=== PATIENT | female | born 1980 | race Caucasian/White ===

== ENCOUNTER 2019-08-10 07:26 | Day surgery (SDC) | payer BC ==
[~2019-08-10 07:26] MED LIST: Lactated Ringers 1,000 ML IV SCH; Midazolam 1 MG/ML 2 ML SDV ONE; Propofol 200 MG/20 ML SDV ONE; Rocuronium 100 MG/10 ML Syringe ONE; fentaNYL 250 MCG/5 ML SDV ONE
[2019-08-10] MEDS ORDERED: Ondansetron 4 MG/2 ML SDV ONE (07:27)
[2019-08-10] MEDS ORDERED: Dexamethasone 4 MG/ML 5 ML MDV ONE (07:27)
[2019-08-10] MEDS ORDERED: Lidocaine 2% 5 ML SDV ONE (07:27)
[2019-08-10] MEDS ORDERED: Propofol 200 MG/20 ML SDV ONE ×2 (07:35→11:22)
[2019-08-10] MEDS ORDERED: Bupivacaine 0.25% 10 ML SDV ONE (07:37)
[2019-08-10] MEDS ORDERED: Scopolamine 1.5 MG Transdermal Patch TRDERM PRN (08:34)
--- NOTE | 2019-08-10 08:34 | PCM.PREANE ---
Preanesthetic Assessment - Anesthesia/Transfusion/Family Hx Anesthesia History: No Prior Anesthesia Family History of Anesthesia Reaction: No Transfusion History: No Prior Transfusion(s) Intubation History: Unknown - Review of Systems General: No Symptoms Pulmonary: No Symptoms Cardiovascular: No Symptoms Gastrointestinal: No Symptoms Neurological: No Symptoms Other: Reports: None - Physical Assessment NPO Status Date: 08/09/19 NPO Status Time: 20:30 Vital Signs: Last Vital Signs Temp 36.4 C 08/10/19 07:55 Pulse 85 08/10/19 07:55 Resp 15 08/10/19 07:55 BP 130/70 08/10/19 07:55 Pulse Ox 100 08/10/19 07:55 Height: 5 ft 6 in Weight: 94.801 kg ASA Class: 2 Mental Status: Alert & Oriented x3 Airway Class: Mallampati = 2 Dentition: Reports: Normal Dentition Thyro-Mental Finger Breadths: 3 Mouth Opening Finger Breadths: 3 (narrow mouth) ROM/Head Extension: Full Lungs: Clear to Auscultation, Normal Respiratory Effort Cardiovascular: Regular Rate, Regular Rhythm - Lab Values: Laboratory Last Values WBC 6.61 K/uL (4.0-11.0) 08/10/19 08:01 RBC 5.00 M/uL (4.30-5.90) 08/10/19 08:01 Hgb 13.8 g/dL (12.0-16.0) 08/10/19 08:01 Hct 42.4 % (36.0-46.0) 08/10/19 08:01 MCV 84.8 fL (80.0-98.0) 08/10/19 08:01 MCH 27.6 pg (27.0-32.0) 08/10/19 08:01 MCHC 32.5 g/dL (31.0-37.0) 08/10/19 08:01 RDW Std Deviation 41.7 fl (28.0-62.0) 08/10/19 08:01 RDW Coeff of Marycarmen 14 % (11.0-15.0) 08/10/19 08:01 Plt Count 274 K/uL (150-400) 08/10/19 08:01 MPV 10.20 fL (7.40-12.00) 08/10/19 08:01 Nucleated RBC % 0.0 /100WBC 08/10/19 08:01 Nucleated RBCs # 0 K/uL 08/10/19 08:01 - Allergies Allergies/Adverse Reactions: Allergies Allergy/AdvReac Type Severity Reaction Status Date / Time No Known Allergies Allergy Verified 08/07/19 08:50 - Blood Blood Available: No - Anesthesia Plan Pre-Op Medication Ordered: None - Acknowledgements Anesthesia Type Planned: General Anesthesia Pt an Appropriate Candidate for the Planned Anesthesia: Yes Alternatives and Risks of Anesthesia Discussed w Pt/Guardian: Yes Pt/Guardian Understands and Agrees with Anesthesia Plan: Yes PreAnesthesia Questionnaire HEENT History: Reports: None Cardiovascular History: Reports: None Respiratory History: Reports: None Gastrointestinal History: Reports: GERD Genitourinary History: Reports: None OUTGOING INSPECTOR History: Reports: , Other (See Below) (left hydrosalpinx) Musculoskeletal History: Reports: Back Pain, Chronic Neurological History: Reports: Migraines Psychiatric History: Reports: None Endocrine/Metabolic History: Reports: Obesity/BMI 30+ (BMI 33.7) Hematologic History: Reports: None Immunologic History: Reports: None Oncologic (Cancer) History: Reports: None Dermatologic History: Reports: None - Past Surgical History Head Surgeries/Procedures: Reports: None HEENT Surgical History: Reports: Oral Surgery Other HEENT Surgeries/Procedures: wisdom teeth extraction Cardiovascular Surgical History: Reports: None Respiratory Surgical History: Reports: None GI Surgical History: Reports: None Female Surgical History: Reports: None Endocrine Surgical History: Reports: None Neurological Surgical History: Reports: None Musculoskeletal Surgical History: Reports: None Oncologic Surgical History: Reports: None Dermatological Surgical History: Reports: None - SUBSTANCE USE Smoking Status *Q: Former Smoker Tobacco Use Within Last Twelve Months: Cigarettes - HOME MEDS Home Medications: Home Meds Acetaminophen [Tylenol Extra Strength] 2 tab PO ASDIRECTED PRN 08/07/19 [History ] Aspirin/Acetaminophen/Caffeine [Migraine Formula Caplet] 2 tab PO Q6H PRN [History] Calcium Carb/Magnesium Hydrox [Rolaids Chewable Tablet] 1 tab.chew CHEW ASDIRECTED PRN 08/07/19 [History] Cholecalciferol (Vitamin D3) [Vitamin D3] 5,000 units PO DAILY 08/07/19 [History ] - CURRENT (IN HOUSE) MEDS Current Meds: Current Medications Lactated Ringer's (Ringers, Lactated) 1,000 mls @ 125 mls/hr IV ASDIRECTED ÁNGEL Discontinued Medications Bupivacaine HCl (Sensorcaine-Mpf 0.25%) Confirm Administered Dose 20 ml .ROUTE .STK-MED ONE Stop: 08/10/19 07:38 Dexamethasone (Dexamethasone) Confirm Administered Dose 20 mg .ROUTE .STK-MED ONE Stop: 08/10/19 07:28 Fentanyl (Sublimaze) Confirm Administered Dose 250 mcg .ROUTE .STK-MED ONE Stop: 08/10/19 07:26 Lidocaine (Xylocaine-Mpf 2%) Confirm Administered Dose 5 ml .ROUTE .STK-MED ONE Stop: 08/10/19 07:28 Midazolam HCl (Versed 1 Mg/Ml) Confirm Administered Dose 2 mg .ROUTE .STK-MED ONE Stop: 08/10/19 07:27 Ondansetron HCl (Zofran) Confirm Administered Dose 4 mg .ROUTE .STK-MED ONE Stop: 08/10/19 07:28 Propofol (Diprivan 20 Ml) Confirm Administered Dose 200 mg .ROUTE .STK-MED ONE Stop: 08/10/19 07:27 Propofol (Diprivan 20 Ml) Confirm Administered Dose 200 mg .ROUTE .STK-MED ONE Stop: 08/10/19 07:36 Rocuronium [place] (Zemuron) Confirm Administered Dose 100 mg .ROUTE .STK-MED ONE Stop: 08/10/19 07:27
[2019-08-10] MEDS ORDERED: Methylene Blue 50 MG/10 ML Ampule ONE (10:41)
[2019-08-10] MEDS ORDERED: HYDROmorphone 2 MG/ML Syringe ONE (11:17)
[2019-08-10] MEDS ORDERED: Glycopyrrolate 0.2 MG/ML SDV ONE (11:27)
[2019-08-10] MEDS ORDERED: Neostigmine Methylsulfate 1 MG/ML 5 ML Syringe ONE (11:27)
[2019-08-10] MEDS ORDERED: Ketorolac 30 MG/ML SDV ONE (11:39)
--- NOTE | 2019-08-10 12:01 | PCM.OPNOTE ---
- General Post-Op/Procedure Note Date of Surgery/Procedure: 08/10/19 Operative Procedure(s): Diagnostic laparoscopy, left salpingectomy Findings: Normal appearing liver. Normal appearing uterus and ovaries. Dilated left fallopian tube. Normal right fallopian tube. Normal appearing cervix, sounded to 9cm. Pre Op Diagnosis: 39yo who desires . Left hydrosalpinx Post-Op Diagnosis: 39yo who desires . Left hydrosalpinx Anesthesia Technique: General ET Tube Primary Surgeon: Shruti Springer Pathology: Left fallopian tube Fluid Replacement, Intraop: 1,000 Output, Urine Amount: 5 Complications: None Condition: Good
[2019-08-10] MEDS ORDERED: fentaNYL 100 MCG/2 ML SDV IVPUSH PRN (12:04)
--- NOTE | 2019-08-10 12:39 | PCM.POSTAN ---
POST ANESTHESIA ASSESSMENT - MENTAL STATUS Mental Status: Alert - VITAL SIGNS Vital Signs: Last Vital Signs Temp 36.4 C 08/10/19 07:55 Pulse 87 08/10/19 12:28 Resp 12 08/10/19 12:28 BP 117/72 08/10/19 12:28 Pulse Ox 94 L 08/10/19 12:28 - RESPIRATORY Respiratory Status: Respiratory Rate WNL - CARDIOVASCULAR CV Status: Pulse Rate WNL - GASTROINTESTINAL GI Status: No Symptoms - POST OP HYDRATION Hydration Status: Adequate & Stable
--- NOTE | 2019-08-10 13:36 | PCM48HPAN ---
Post Anesthesia Note - EVALUATION WITHIN 48HRS OF ANESTHETIC Vital Signs in Normal Range: Yes Patient Participated in Evaluation: Yes Respiratory Function Stable: Yes Airway Patent: Yes Cardiovascular Function Stable: Yes Hydration Status Stable: Yes Pain Control Satisfactory: Yes Nausea and Vomiting Control Satisfactory: Yes Mental Status Recovered: Yes Vital Signs: Last Vital Signs Temp 36.3 C 08/10/19 12:35 Pulse 97 08/10/19 12:35 Resp 15 08/10/19 12:35 BP 130/76 08/10/19 12:35 Pulse Ox 95 08/10/19 12:35 - COMMENTS/OBSERVATIONS Free Text/Narrative:: No anesthesia problems
[2019-08-10 13:45] VITALS: BP 107/67; PULSE 89
[2019-08-10] MEDS ORDERED: diphenhydrAMINE 50 MG/ML SDV ONE (13:57)
[2019-08-10] MEDS ORDERED: diphenhydrAMINE 50 MG/ML SDV IVPUSH PRN (14:55)
--- NOTE | 2019-08-10 15:49 | OR ---
SURGEON: Shruti Springer MD DATE OF PROCEDURE: 08/10/2019 PREOPERATIVE DIAGNOSES: 1. A 39-year-old, G2, P2, who desires . 2. Left hydrosalpinx diagnosed on hysterosalpingogram. POSTOPERATIVE DIAGNOSES: 1. A 39-year-old, G2, P2, who desires . 2. Left hydrosalpinx diagnosed on hysterosalpingogram. PROCEDURE: Diagnostic laparoscopy and left salpingectomy. PRIMARY SURGEON: Shruti Springer MD. ANESTHESIA: General endotracheal. ESTIMATED BLOOD LOSS: 5 mL. SPECIMENS: Left tube. IV FLUIDS: 1000 mL LR. COMPLICATIONS: None. CONDITION: Stable to recovery room. FINDINGS: 1. Normal-appearing cervix, sounded to 9 cm. 2. Normal-appearing liver. 3. Normal-appearing uterus and ovaries. Dilated left fallopian tube. Normal- appearing right fallopian tube. DESCRIPTION OF PROCEDURE: The patient was taken to the operating room where general anesthesia was obtained without difficulty. She was placed in the dorsal lithotomy position with legs in Yellofin stirrups. She was prepared and draped in normal sterile fashion. A time-out procedure was performed. A Graves speculum was inserted into the vagina and the cervix was grasped with a single-tooth tenaculum. The cervix was dilated with Hegar dilators to a size 6. The uterus then sounded to 9 cm. A HUMI uterine manipulator was inserted through the cervix into the uterus. The intrauterine balloon was insufflated with 5 mL of air. Attention was then turned to the abdomen. The umbilicus was infiltrated with 0.25% Marcaine and a 5 mm incision was made with a scalpel. A 5 mm trocar was inserted into the abdomen under direct visualization. Pneumoperitoneum was then created with CO2 gas. Two other ports were placed in the bilateral lower quadrants under direct visualization after infiltration with 0.25% Marcaine. Inspection of the pelvis revealed the above findings. The patient's left fallopian tube was grasped with an atraumatic grasper and the LigaSure device was used to clamp, coagulate, and transect the left fallopian tube along the mesosalpinx until the cornu was reached. The tube was then transected at the cornu using the LigaSure device. The 5 mm right lower quadrant port was then removed and replaced with a 12 mm port. An Endo Catch bag was then placed into the abdomen and the left tube was placed in Endo Catch bag and removed through the 12 mm port. The pelvis inspected and good hemostasis was noted. The patient was taken out of Trendelenburg. A Neftali-Jose device was used to close the 12 mm fascial port with 0 Vicryl suture. All instruments were then removed from the patient's abdomen and the gas was removed. The skin incisions were closed with 4-0 Monocryl. The Graves speculum was replaced into the vagina. The HUMI uterine manipulator was removed and hemostasis was noted. The patient was awakened and taken to recovery room in stable condition. All sponge, lap, and instrument counts were correct x2. The patient tolerated the procedure well. [id number] / MODL /[id number]
== END 2019-08-10 14:33 | disposition home or self-care (01) ==
LOC: MW.SDS 07:26
PROVIDERS: ATTEND Obstetrics & Gynecology
DX: N70.11 Chronic salpingitis (principal); G43.909 Migraine, unspecified, not intractable, without status migrainosus; K21.9 Gastro-esophageal reflux disease without esophagitis; E66.9 Obesity, unspecified; Z68.33 Body mass index [BMI] 33.0-33.9, adult; Z87.891 Personal history of nicotine dependence; Z79.82 Long term (current) use of aspirin
CPT/HCPCS: 36415; 58661; 84703; 85027; A9270; J1100; J1170; J1200; J1885; J2001; J2250; J2405; J2704; J3010; J3490; J7120

== ENCOUNTER 2022-01-19 06:37 | Day surgery (SDC) | payer BC ==
[~2022-01-19 06:37] MED LIST changes: -Midazolam 1 MG/ML 2 ML SDV ONE; -Propofol 200 MG/20 ML SDV ONE; -Rocuronium 100 MG/10 ML Syringe ONE; -fentaNYL 250 MCG/5 ML SDV ONE
[2022-01-19] MEDS ORDERED: Scopolamine 1.5 MG Transdermal Patch TRDERM PRN (07:21)
[2022-01-19] MEDS ORDERED: Propofol 200 MG/20 ML SDV ONE ×5 (07:28→09:40)
[2022-01-19] MEDS ORDERED: Midazolam 1 MG/ML 2 ML SDV ONE (07:28)
[2022-01-19] MEDS ORDERED: fentaNYL 100 MCG/2 ML SDV ONE ×3 (07:28→08:48)
[2022-01-19] MEDS ORDERED: Rocuronium 100 MG/10 ML MDV ONE ×2 (07:29→09:29)
[2022-01-19] MEDS ORDERED: Methylene Blue 50 MG/10 ML Ampule ONE (07:29)
[2022-01-19] MEDS ORDERED: Dexmedetomidine 200 MCG/2 ML SDV ONE (07:30)
[2022-01-19] MEDS ORDERED: Bupivacaine 0.25% 30 ML SDV ONE (07:30)
[2022-01-19] MEDS ORDERED: Bupivacaine 0.25% 10 ML SDV ONE (07:30)
[2022-01-19] MEDS ORDERED: Lidocaine 2% 5 ML SDV ONE (07:35)
[2022-01-19 08:00] LABS: POTASSIUM,K 3.6 mmol/L (3.5-5.1)
[2022-01-19] MEDS ORDERED: Ondansetron 4 MG/2 ML SDV IVPUSH PRN (08:40)
[2022-01-19] MEDS ORDERED: Naloxone 0.4 MG/ML SDV IVPUSH PRN (08:40)
[2022-01-19] MEDS ORDERED: Metoclopramide 10 MG/2 ML SDV IVPUSH PRN (08:40)
[2022-01-19] MEDS ORDERED: HYDROmorphone 1 MG/ML Syringe IVPUSH PRN (08:40)
[2022-01-19] MEDS ORDERED: Albuterol 0.083% 2.5 MG/3 ML Neb Soln NEB PRN (08:40)
[2022-01-19] MEDS ORDERED: Morphine 2 MG/ML SYRINGE IVPUSH PRN (08:40)
[2022-01-19] MEDS ORDERED: fentaNYL 50 MCG/ML SDV IVPUSH PRN (08:40)
[2022-01-19] MEDS ORDERED: Octyl 2-Cyanoacrylate 1 Tube ONE (09:13)
[2022-01-19] MEDS ORDERED: Sugammadex Sodium 200 MG/2 ML VIAL ONE (09:29)
[2022-01-19] MEDS ORDERED: Ondansetron 4 MG/2 ML SDV ONE (09:29)
[2022-01-19] MEDS ORDERED: Dexamethasone 4 MG/ML 5 ML MDV ONE (09:29)
[2022-01-19] MEDS ORDERED: Ketorolac 30 MG/ML SDV ONE (09:29)
[2022-01-19] MEDS ORDERED: HYDROmorphone 2 MG/ML Syringe ONE (09:47)
[2022-01-19] MEDS ORDERED: Acetaminophen/oxyCODONE 325-5 MG Tab PO PRN (10:19)
[2022-01-19 11:43] VITALS: BP 110/59; PULSE 87
== END 2022-01-19 12:23 | disposition home or self-care (01) ==
LOC: MW.SDS 06:37
PROVIDERS: ATTEND Obstetrics & Gynecology
DX: D27.1 Benign neoplasm of left ovary (principal); G43.909 Migraine, unspecified, not intractable, without status migrainosus; E55.9 Vitamin D deficiency, unspecified; E66.9 Obesity, unspecified; Z79.899 Other long term (current) drug therapy; Z98.890 Other specified postprocedural states; Z68.37 Body mass index [BMI] 37.0-37.9, adult
CPT/HCPCS: 00840; 36415; 80053; 81025; 85027; 86850; 86900; 86901; A9270-GY; J1100; J1170; J1885; J2250; J2405; J2704; J3010; J3490; J7030; J7120